=== PATIENT | male | born 1995 | race Caucasian/White ===

== ENCOUNTER 2024-12-31 19:34 | Emergency (ER) | payer OTHER ==
[~2024-12-31] VITALS: Ht 198.1 cm; Wt 72.6 kg
[2024-12-31 19:43] VITALS: BP 143/82
[2024-12-31] MEDS ORDERED: Atarax10 MG PO (20:17)
== END 2024-12-31 20:32 | disposition home or self-care (01) ==
LOC: ER 19:34
DX: F41.9 Anxiety disorder, unspecified (principal)
CPT/HCPCS: 99282

== ENCOUNTER 2025-06-14 23:49 | Emergency (ER) | payer OTHER ==
[~2025-06-14] VITALS: Ht 200.7 cm; Wt 108.9 kg
[~2025-06-14 23:49] MED LIST: Atarax10 MG PO
[2025-06-15] MEDS ORDERED: Ziprasidone Mesylate 20 MG / Vial IM ONE (00:15)
[2025-06-15 00:40] LABS: U Amphetamine Screen Not Detected; U Barbituate Screen Not Detected; U Benzodiazapine Screen Not Detected; U Buprenorphine Screen Not Detected; U Cannabinoids Screen DETECTED; U Cocaine Screen Not Detected; U Methadone Screen Not Detected; U Methamphetamine Screen Not Detected; U Opiates Screen Not Detected; U Oxycodone Screen Not Detected; U Phencyclidine Screen Not Detected
[2025-06-15 01:10] LABS: BASOPHILS ABSOLUTE AUTO 0.04 K/mm3 (0.00-0.23); BASOPHILS PERCENT AUTO 1 % (0-2); EOSINOPHILS ABSOLUTE AUTO 0.05 K/mm3 (0.00-0.68); EOSINOPHILS PERCENT AUTO 1 % (0-6); Hematocrit 44.2 % (37.0-53.0); Hemoglobin 15.1 g/dL (13.5-17.5); IMMATURE GRAN ABSOLUTE AUTO 0.03 K/mm3 (0.00-0.10); IMMATURE GRAN PERCENT AUTO 0 % (0-1); LYMPHOCYTES ABSOLUTE AUTO 2.36 K/mm3 (0.84-5.20); LYMPHOCYTES PERCENT AUTO 27 % (21-46); MONOCYTES ABSOLUTE AUTO 0.50 K/mm3 (0.16-1.47); MONOCYTES PERCENT AUTO 6 % (4-13); Mean Corpuscular HGB Conc 34.2 g/dL (31.5-36.5); Mean Corpuscular Volume 87 fL (80-100); NEUTROPHILS ABSOLUTE AUTO 5.76 K/mm3 (1.96-9.15); NEUTROPHILS PERCENT AUTO 66 % (41-73); NRBC ABSOLUTE 0.00 K/mm3 (0.00-0.02); NRBC Auto 0.0 /100 WBC (0.0-0.2); RDW Coefficient Variation 12.2 % (11.7-14.2); RDW Standard Deviation 39.0 fL (35.1-46.3)
[2025-06-15 01:12] LABS: Platelet Count 228 K/mm3 (150-400)
[2025-06-15 01:24] LABS: Ethanol (Alcohol), Blood, Med <3 mg/dL; Salicylate <1.7 mg/dL (2.8-20.0)
[2025-06-15 01:26] LABS: Alanine Aminotransfer (ALT/SGP 32 U/L (12-78); Albumin, Blood 4.5 g/dL (3.4-5.0); Albumin/Globulin Ratio 1.4 (0.8-1.8); Anion Gap 6 mmol/L (3-11); Aspartate Aminotrans (AST/SGOT 22 U/L (12-37); Bilirubin, Total 0.3 mg/dL (0.1-1.0); Blood Urea Nitrogen 11 mg/dL (8-24); CO2, Blood 28 mmol/L (21-32); Calcium, Blood 9.1 mg/dL (8.5-10.1); Chloride, Blood 106 mmol/L (98-108); Creatinine, Blood 0.82 mg/dL (0.60-1.20); Globulin, Blood 3.3 g/dL (2.2-4.0); Glucose, Blood 101 mg/dL (70-99); Potassium, Blood 3.8 mmol/L (3.5-5.5); Sodium, Blood 136 mmol/L (136-145); Total Protein, Blood 7.8 g/dL (6.4-8.2)
[2025-06-15 01:27] LABS: Acetaminophen, Random <2.0 ug/mL (10.0-30.0)
[2025-06-15] MEDS ORDERED: QUETIAPINE FUMA5012 PO (01:34)
[2025-06-15 09:18] VITALS: BP 129/81
== END 2025-06-15 14:43 | disposition other institution (70) ==
LOC: ER 23:49 → EOR 06-15 00:52 → ER 06-15 00:52 → EDBEDREQSVC 06-15 13:20 → EOR 06-15 14:45
PROVIDERS: Emergency Medicine
DX: F23 Brief psychotic disorder (principal)
CPT/HCPCS: 80053; 80320; 85025; 96372; 99285; G0378; G0480; J3486

== ENCOUNTER 2025-06-15 12:32 | Inpatient (IN) | payer OTHER ==
[~2025-06-15] VITALS: Ht 198.1 cm; Wt 107.3 kg
[~2025-06-15 12:32] MED LIST changes: +QUETIAPINE FUMA5012 PO
[2025-06-15] MEDS ORDERED: FLU VACC TS2025-26(6MOS UP)/PF 45 MCG/0.5 ML SYRINGE IM SCH (14:40)
[2025-06-15] MEDS ORDERED: Haloperidol Lactate Inj. 5 MG/ML Injection IM PRN (14:40)
[2025-06-15] MEDS ORDERED: DiphenhydrAMINE HCl 50 MG/ML 1ML Vial IM PRN (14:45)
[2025-06-15] MEDS ORDERED: Polyethylene Glycol 3350 17 gm PO PRN (14:45)
[2025-06-15] MEDS ORDERED: Ondansetron 4 MG SoluTab MM PRN (14:50)
[2025-06-15] MEDS ORDERED: Aluminum Hydroxide 320MG/5ML 473 ML PO PRN (14:50)
[2025-06-15] MEDS ORDERED: LORazepam 2 MG/ML 1ML Injection IM PRN (14:50)
[2025-06-15 15:03] VITALS: BP 120/95
[2025-06-15 15:35] VITALS: BP 120/95
--- NOTE | 2025-06-15 17:26 | NUR ---
ADMISSION SUMMARY PT ARRIVED TO [facility] AT 1427, ESCORTED BY ERIC OCONNOR AND ERIC MOLINA. BELONGINGS WERE GATHERED AND PLACED IN PT TOTE AND LOCKER, BY ERIC. VS TAKEN AND DOCUMENTED. TWO RN SKIN CHECK WAS COMPLETED BY ARMANDO FERGUSON AND ARMANDO KELLY. PT HAS NO SKIN ISSUES NOTED. HE CHANGED SELF IN SCRUBS. PT WAS COOPERATIVE WITH INTAKE AND CALM. HE WAS ABLE TO ANSWER QUESTIONS BUT SPEAKS TANGENTIAL, FAST, SPONTANEOUS AND CLEAR. PT STATES HE IS HERE BECAUSE HE TRIED TO DRIVE HOME FROM WORK AND HIS DIDN'T THINK HE SHOULD. ED RN REPORTS PT WAS AT WORK AND SPEAKING TANGENTIAL AND AFTER HE GOT HOME PT WAS CONFUSED AND FOUND LAYING IN HIS YARD NAKED STARRING UP AT THE [employer]. PT HAS A HX OF ONE OTHER PSYCHOTIC EPISODE X3 YEARS AGO, SIMILAR TO THE SAME. PT STATES IT WAS AFTER HE ATE A BROWNIE THAT HAD THC AND UNKNOWN SUBSTANCES IN IT. HE STATES HE WAS TESTED FOR BIPOLAR DISORDER AT THAT TIME BUT IT CAME BACK NEGATIVE. HE STATES HE HAS NO OTHER DIAGNOSIS AND IS NOT CURRENTLY TAKING ANY MEDICATIONS. HE DID RECIEVE AN IM DOSE OF GEODON IN THE ED AND PT STARTED TO IMPROVE AFTER. HE ADMITS TO USING THC OCASSIONALLY. HIM AND HIS , ADELA, LIVE IN THE BASEMENT OF HIS PARENTS HOUSE AND THEY HAVE BEEN TRYING TO FIX THEIR CREDIT TO GET THEIR OWN APARTMENT AND THIS IS A STRESSER FOR THE PT. PT DENIES SI/HI/AVTH. HE WAS GIVEN A TOUR OF THE FACILITY AND ORIENTED TO HIS ROOM. PT IMMEDIATELY PARTICIPATED IN GROUP.
--- NOTE | 2025-06-16 04:32 | NUR ---
SHIFT SUMMARY 29 YEAR OLD MALE PRESENTED WELL GROOMED AND ABLE TO MAKE LIMITED EYE CONTACT. PT'S SPEAK IS CLEAR, BUT TANGENTIAL. HE SPOKE IN AN APPROPRITATE VOLUME. HE INTERACTED WELL WITH STAFF AND PEERS. HE WAS CALM AND COOPERATIVE WITH CARE AND EVENING MEDICATION PASS. PT SPENT HIS REC TIME PACING THE REAVES. PT'S CALLED AND INQUIRED ON HIS CONDITION. SHE WAS ALSO CONCERNED THAT HE HAS NOT BEEN SLEEPING PRIOR TO ADMISSION. CLIENT RECEIVED TRAZADONE AND MELATONIN PRN AND HAS SLEPT MOST OF THE NIGHT. PT CONTINUES TO BE MONITORED Q15 MINUTES FOR SAFETY AND CARE.
[2025-06-16 08:57] VITALS: BP 138/81
[2025-06-16] MEDS ORDERED: Multivitamins 1 Tab PO SCH (09:00)
--- NOTE | 2025-06-16 12:15 | NUR ---
SHIFT ASSESSMENT: PT IS ORIENTED AND COOPERATIVE WITH CARE. HE DENIES SI AND HI. HE IS WELL GROOMED AND APPEARS STATED AGE. PT HAS BEEN UP FOR BREAKFAST AND ATTENDED AM GROUP. STATES THAT HIS MOOD IS "GOOD" AND THAT HE "WOULD LIKE TO GET MY CAR". HE HAS BEEN COMPLIANT WITH MEDICATIONS.
--- NOTE | 2025-06-16 17:50 | NUR ---
SHIFT SUMMARY: PT REMAINED ALERT, ORIENTED AND COOPERATIVE WITH CARE. HE DENIED SI, HI AND AVH. PT WAS PRESENT ON THE UNIT, ATTENDED MEALS AND GROUPS. HE SPENT TIME IN THE DAY ROOM WATCHING TV, VISITING OTHER STAFF AND PEERS.
[2025-06-16 19:38] VITALS: BP 125/93
--- NOTE | 2025-06-17 04:43 | NUR ---
SHIFT SUMMARY 29 YEAR OLD PRESENTS WELL GROOMED AND ABLE TO MAKE AND KEEP EYE CONTACT DURING CONVERSATION. PT SPOKE IN A CLEAR VOICE AND IN AN APPROPRIATE VOLUME. PT DENIED SI, HI, AND AVTH AT THE TIME OF ASSESSMENT. PT WAS CALM AND COOPERATIVE WITH CARE AND MEDICATIONS. HE DID HOWEVER BECOME LOUD AND BOISTEROUS DURING A PHONE CALL WITH HIS . HE WAS IMMEDIATELY CALM WHEN INTERACTING WITH STAFF AFTERWARDS. PT ATTENDED ALL GROUPS AND MEALS. PT STARTED TAKING ZYPREXA TONIGHT AND HAS EXHIBITED NO ADVERSE EFFECTS AFTERWARDS. HE HAS INTERACTED WELL WITH STAFF AND PEERS. HE CONTINUES TO BE MONITORED Q15 MINUTES FORCARE AND SAFETY
[2025-06-17 09:06] VITALS: BP 132/65
--- NOTE | 2025-06-17 11:26 | NUR ---
SHIFT ASSESSMENT: PT IS ALERT, ORIENTED AND COOPERATIVE WITH CARE. HE DENIES SI, HI AND AVH. HE DECLINED AM LABS, STATES THAT IT MAKES HIM "ANXIOUS AND VOMIT". DISCUSSED WITH PATIENT THE REASONING FOR THE LABS AND HE PLANS TO SPEAK WITH THE PROVIDER ABOUT HAVING THEM DONE. STATES THAT HIS MOOD IS, "OK". HIS AFFECT IS FLAT AND HE HAS APPROPRIATE EYE CONTACT. HE HAS ATTENDED BREAKFAST AND AM GROUP..
--- NOTE | 2025-06-17 14:44 | NUR ---
"Spiritual Care Visit | Pt. Request Meet Pt. in [facility] visiting room. Pt. knows this certified low vision therapist from the community. Facilitated a lengthy life review. Listen with empathy and a calming presence. Pt. displayed evidence of trust. Prayed with Pt. Pt. verbalized gratitude for the spiritual care visit."
--- NOTE | 2025-06-17 17:10 | NUR ---
SHIFT SUMMARY: PT HAS REMAINED ALERT, ORIENTED AND COOPERATIVE WITH CARE. HE HAS BEEN PRESENT ON THE UNIT AND ACTIVE IN THE MILIEU. SPENT TIME WALKING IN THE REAVES AND WATCHING TV IN THE DAY ROOM. HE ATTENDED GROUPS AND MEALS. NO ACUTE CHANGES THROUGHOUT THE SHIFT.
[2025-06-17 19:39] VITALS: BP 119/66
--- NOTE | 2025-06-18 04:56 | NUR ---
SHIFT SUMMARY: PT A/O X3. DENIES SI, HI, AND AVH. PT TALKED NONSTOP FROM ONE SUJECT TO THE NEXT. HE MOSTLY TALKED ABOUT RELIGON AND HIS . HE IS ANGRY ON THE PHONE TO HER AND STARTS SHOUTING. HE HAS TO BE TOLD TO GET OFF THE PHONE. PT HAS FLIGHT OF IDEAS AND TANGENTIL WHEN HE GETS GOING IN HIS TALKING. UP IN THE GROUP ROMM INTERACTING WITH OTHERS AT THE BEGINNING OF THE SHIFT. WENT TO SNACK AND WRAP UP. WATCHED TV UNTIL BED TIME. HAS BEEN SLEEPING SINCE THEN. WILL CONTINUE TO MONITOR.
[2025-06-18 08:20] LABS: CHOL/HDL RATIO 2.2; Cholesterol 147 mg/dL (50-200); HDL Cholesterol 68 mg/dL (>39); LDL/HDL RATIO 0.9; Low Density Lipoprotein Chol 62 mg/dL (0-110); Triglycerides 87 mg/dL (30-140); Very Low Density Lipoprot Chol 17 mg/dL (6-28)
[2025-06-18 08:55] VITALS: BP 127/79
[2025-06-18 10:59] LABS: Alanine Aminotransfer (ALT/SGP 32.0 U/L (12-78); Albumin, Blood 4.0 g/dL (3.4-5.0); Albumin/Globulin Ratio 1.1 (0.8-1.8); Aspartate Aminotrans (AST/SGOT 16.0 U/L (12-37); Bilirubin, Direct 0.2 mg/dL (0.0-0.3); Bilirubin, Indirect 0.4 mg/dL (0.1-0.7); Bilirubin, Total 0.6 mg/dL (0.1-1.0); Globulin, Blood 3.6 g/dL (2.2-4.0); Total Protein, Blood 7.6 g/dL (6.4-8.2)
--- NOTE | 2025-06-18 12:39 | NUR ---
"Spiritual Care Visit | Pt. request Meet Pt. in the [facility] visitor room. Facilitated a continuation of a life review that began yesterday. Pt. displays evidence of needing to tell his story, and this digital ad trafficker provided theraputic listening. Pt. displayed evidence of trust and engagement. This digital ad trafficker was called to a Trauma Team Activiation. Pt. verbalized gratitude for the visit."
--- NOTE | 2025-06-18 14:51 | NUR ---
SHIFT ASSESSMENT: PT WAS WALKING THE HALLS AT THE BEGINNING OF SHIFT. PT DENIED SI, HI, AVH, ANXIETY AND PAIN. HE DESCRIBED HIS MOOD , "I MISS MY TERRIBLY AND I MISS MY JOB. HIS AFFECT WAS FLAT. HIS GOAL WAS TO, "MAINTAIN A HEALTHY DIET." PT FEARFUL OF HAVING HIS BLOOD PRESSURE TAKEN ON THE ARM THAT HE HAD BLOOD WORK DONE. HE EXPRESSED THAT, "SOMETHING BAD COULD HAPPEN." PT HAS BEEN ON THE FRINGE OF THE MILIEU.
[2025-06-18 19:10] VITALS: BP 121/74
[2025-06-18] MEDS ORDERED: Divalproex Sodium 500 MG TABCR PO SCH (21:00)
--- NOTE | 2025-06-19 06:23 | NUR ---
SHIFT SUMMARY Pt is A&O, calm, cooperative, polite, appropriately dressed and groomed, eye contact is appropriate. Pt describes his mood as "pretty good," affect is blunted. Pt denies SI, HI, and hallucinations. Pt also denies pain or other medical issues. Pt s spouse call the unit and spoke to the bellows charger assembler concerning an earlier conversation she had with the pt where he expressed some paranoid and delusional thoughts concerning his safety on the BHU. Pt spent the evening watching TV with peers and staff. No PRNs were requested. Staff continues to monitor q15m for safety and wellness.
[2025-06-19 09:00] VITALS: BP 124/91
--- NOTE | 2025-06-19 14:26 | NUR ---
SHIFT ASSESSMENT: PT DENIED SI, HI, AVH, ANXIETY AND PAIN. PT WAS WALKING IN THE HALLWAY AT THE BEGINNING OF THE SHIFT. HE WAS PLEASANT AND COOPERATIVE. HE DESCRIBED HIS MOOD UPLIFTED AND DELIGHTFUL. HIS AFFECT WAS EUTHYMIC. HIS GOAL TODAY IS, "TO SPEAK SOFTLY TO OTHERS AND TO BE KIND." PT HAS BEEN ACTIVE IN THE MILIEU AND HAS BEEN ATTENDING GROUPS. PT WAS WELL GROOMED.
--- NOTE | 2025-06-19 17:55 | NUR ---
PT HAS APPEARED TO BE IN GOOD HUMOR TODAY, HE HAD A VISITOR AND THAT SEEMED TO GO WELL. HE PLAYED CARD GAMES IN THE SENSORY ROOM WITH 2 PEERS AND IT APPEARED THAT HE WAS HAVING A GOOD TIME. HE HAS BEEN ALSO WALKING THE HALLS A LOT TODAY..."I NEED THE EXERCISE...YOU GUYS ARE FEEDING ME TOO GOOD!" HIS CALLED TODAY AND ASKED HOW PT WAS DOING, SHE SAID SHE WAS PROBABLY NOT COMING IN TONIGHT OR TOMORROW.
[2025-06-19 19:26] VITALS: BP 118/82
--- NOTE | 2025-06-20 05:49 | NUR ---
SHIFT SUMMARY Pt is A&O, calm, cooperative, polite, appropriately dressed and groomed, eye contact is appropriate. Pt describes his mood as "sad," affect is constricted. Pt denies SI, HI, and hallucinations. Pt also denies pain or other medical issues. Pt stated that he was in a happy mood most of the day, but in the early evening he was talking to his about some financial and other personal issues and after the conversation, his mood saddened. Pt discussed his job at [employer] and said he likes his job and that the company doesn t mind his cannabis use on his personal time. Pt was active on the milieu during the evening. No PRNs were requested. Staff continues to monitor q15m for safety and wellness.
[2025-06-20 08:55] VITALS: BP 123/86
--- NOTE | 2025-06-20 16:37 | NUR ---
SHIFT SUMMARY NO ACUTE EVENTS TODAY. DENIES SI, HI, AVTH. STATED MOOD WAS "JOYFUL". PT HAS BEEN TO GROUPS, MEALS, AND DAYROOM INTERACTING W/ PT'S/WATCHING TV. PT APPEARS GOAL ORIENTED AND IS NOW VISITING W/ PARENTS.
[2025-06-20 19:18] VITALS: BP 137/71
--- NOTE | 2025-06-21 05:21 | NUR ---
SHIFT SUMMARY Pt is A&O, calm, cooperative, polite, appropriately dressed and groomed, eye contact is appropriate. Pt describes his mood as "joyful," affect is somewhat constricted. Pt denies SI, HI, and hallucinations. Pt also denies pain or other medical issues. Pt stated that he had a visit with his parents today that went well. He also talked to his on the phone, that also went well; "no yelling." Pt was active on the milieu this evening, walking the hallway, visiting with peers, and watching TV. No PRNs were requested. Staff continues to monitor q15m for safety and wellness.
[2025-06-21 09:01] VITALS: BP 123/80
[2025-06-21] MEDS ORDERED: DIVA500ER PO (12:57)
[2025-06-21] MEDS ORDERED: OLAN10 PO (12:58)
--- NOTE | 2025-06-21 17:13 | NUR ---
SHIFT SUMMARY PT DENIES SI/HI/AVTH. HE WAS COMPLIANT WITH ALL MEDICATIONS AND HE DID NOT RECIEVE ANY PRN MEDICATIONS. PT ATTENDED GROUPS AND INTERACTED WELL WITH PEERS IN THE COMMON AREAS. HE IS EUTHYMIC THIS SHIFT AND EXPRESSES DESIRE TO D/C HOME. HE IS PLANNED TO BE PICKED UP TOMORROW AT 11:30 BY HIS . PT IS AWARE OF PLAN TO D/C TOMORROW. PT HAS HAD NO ACUTE BEHAVIORS TO REPORT THIS SHIFT. D/C MED LIST WAS FAXED TO [facility] PER PT REQUEST.
[2025-06-21 19:21] VITALS: BP 107/80
--- NOTE | 2025-06-22 05:16 | NUR ---
SHIFT SUMMARY Pt is A&O, calm, cooperative, polite, appropriately dressed and groomed, eye contact is appropriate. Pt describes his mood as "uplifted," affect is euthymic. Pt denies SI, HI, and hallucinations. Pt also denies pain or other medical issues. Pt received a phone call from his this evening and said that it went well. He is looking forward to discharge tomorrow. Pt was active on the milieu this evening, watching TV with peers and staff. No PRNs were requested. Staff continues to monitor q15m for safety and wellness.
[2025-06-22 08:55] VITALS: BP 135/96
--- NOTE | 2025-06-22 09:48 | NUR ---
IMPORTANT DISCHARGE INFORMATION PATIENT DISCHARGING TODAY. HIS SPOUSE "ADELA" HIS SPOUSE IS PICKING HIM UP AROUND 11:30AM. SHE CAN BE REACHED AT [phone]. ALL PARTIES VERBALIZE AN UNDERSTANDING. FOLLOW UP WITH NEW PCP DR. FISCHER AT THE [facility] ON [facility] ON 06/25/25 AT10:20AM. MENTAL HEALTH REFERRAL PLACED WITH CLINIC. FOLLOW UP WITH [facility] OPEN ACCESS FOR MENTAL HEALTH FOLLOW UP. PHARMACY: [facility] [phone]
[2025-06-22] MEDS ORDERED: DIVA500EC PO (11:14)
[2025-06-22] MEDS ORDERED: OLAN10 PO (11:15)
== END 2025-06-22 12:39 | disposition home or self-care (01) | DRG 885 ==
LOC: BHU 12:32
PROVIDERS: Psychiatry & Neurology Psychiatry; ADMIT Emergency Medicine
DX: F23 Brief psychotic disorder (principal); F12.159 Cannabis abuse with psychotic disorder, unspecified; Z79.899 Other long term (current) drug therapy; Z79.1 Long term (current) use of non-steroidal anti-inflammatories (NSAID); Z28.21 Immunization not carried out because of patient refusal
CPT/HCPCS: 36415; 80061; 80076; 83036; A9270